=== PATIENT | female | born 1985 | race Caucasian/White ===

== ENCOUNTER 2018-05-30 18:43 | Inpatient (IN) ==
[2018-05-31] MEDS ORDERED: Bupivacaine/Epinephrine PF Inj 0.5% 30 ML Vial ONE (00:45)
--- NOTE | 2018-05-31 03:14 | P.HPOB ---
History of Present Illness Reason for admission: ectopic Planned procedure: other (exam under anesthesia, right salpingectomy, and any other indicated procedure) Narrative: Hawa Arambula is a 32 year old female transfered from [place] for suspected ectopic . She presented to ED with sudden abdominal pain. She had + bhcg, TVUS no iup, free fluid in cul de sac and dilated tube. She has also had some light vagina bleeding. She is npo since 4pm. Review of Systems All other systems reviewed negative except as stated in HPI Gastrointestinal: Reports abdominal pain Genitourinary: Reports abnormal vaginal bleeding, Reports absent period PMFSH - History History Provided By: Patient - Medical History Medical History: Medical History (Last Reviewed 05/30/18 @ 19:27 by NUSRAT Mena) Asthma Ovarian cyst - Surgical History Surgical History: Surgical History (Last Reviewed 05/30/18 @ 19:27 by NUSRAT Mena) No history of previous surgery - Tobacco History Second Hand Smoke Exposure: Yes Smoking Status: Current every day smoker Tobacco Type: Cigarettes - Alcohol History How Often Do You Have a Drink Containing Alcohol: Monthly or less Medications and Allergies Allergies Allergy/AdvReac Type Severity Reaction Status Date / Time No Known Allergies Allergy Verified 05/30/18 19:14 Home Medications Medication Instructions Recorded Confirmed Type No Known Home Medications 05/30/18 05/30/18 History Physical Exam Vital signs: Temp Pulse Resp BP 97.8 F 78 16 121/80 05/31/18 01:02 05/31/18 01:02 05/31/18 01:02 05/31/18 01:02 - Constitutional no acute distress - Routine Chest/Breast/Axilla Exam Chest wall: Absent: tenderness - Routine Respiratory Exam Absent: accessory muscle use - Routine Abdominal Exam Present: soft. Absent: guarding - Routine Extremities Exam Absent: cyanosis, clubbing, edema Assessment and Plan - Assessment (1) Ruptured right tubal ectopic causing hemoperitoneum Code(s): O00.101 - Right tubal without intrauterine ; K66.1 - Hemoperitoneum Status: Acute - Plan 32 yo9 with a suspected ruptured ectopic, likely right tube. Hemodynamically stable, hgb 12+. She was transfered to main PACU for surgery. She has been consented for an EUA, LSC, possible right salpingectomy and any other indicated procedures. She has also consented for blood if medically necessary. Post op care reviewed.
[2018-05-31] MEDS ORDERED: Chlorhexidine Gluconate 2% 1 Pack (2 Cloths) TOPICAL ONE (03:15)
--- NOTE | 2018-05-31 03:16 | P.BOP ---
- Preoperative Diagnosis (1) Ruptured right tubal ectopic causing hemoperitoneum - Postoperative Diagnosis (1) Ruptured right tubal ectopic causing hemoperitoneum Date of procedure: 05/31/18 Procedure: exam under anesthesia, laparoscopic right salpingectomy Anesthesia: GETA Surgeon: Lanette Coker MD [employer]: staff Estimated blood loss (mL): 300 IV fluids (mL): 1,000 Urine output (mL): 150 Pathology: other (right tubal ectopic) Condition: stable Disposition: PACU Subjective Subjective Remarks/Hospital Course: Counts: Correct x 3 Specimens: right tubal ectopic Dispo: to pacu, then home Indication: Ruptured right tubal Intraoperative findings: 200ml of hemoperitoneum, enlarged right fallopian tube , normal left tube, normal ovaries. Appendix not visualized, normal liver edge. Procedure in detail: After review of informed consent, the patient was take to the OR where GETA was administered without complications. She had preop abx and scds to ble. She was placed in modified dorsal lithotomy position with brandon stirups. The abdomen and perineum were prepped and drapped in normal sterile fashion. An exam under anesthesia was performed. Uters enlarged to approx. 9cm, midline, min blood in vault. Shaffer placed in sterile condition to dependant gravity. A bivalve speculum was placed in the vagina. An acorn uterine manipulator was used. Speculum was removed. Gloves changed and attention was then turned to the abdomen. Marcaine with epi was injected in the umbilical fold, a 5mm skin incision was made with the scalpel. A direct visual entry was made while tenting the abdomen. The abdomen was insufflated once abdominal entry was established. A 12 mm trocar site was established in the llq, 2 cm medial and superior to the ASIS under direct visualization. A 5 mm RLQ trocar site was established in a similar fashion. An abdominal survey was performed. The left tube was noted to have normal fimbria, right tube grossly dilated with tubal ectopic. The tube was grasped from the fimbriated end, the Harmonic was used to remove the tube by following the mesosalpinx to the corneal area. Good hemostasis was noted. A lsc pouch was placed in the abdomen and the specimen was retrieved. The 12 mm fascia was closed with #0 vicryl with a kandice Love device and an interrupted 0 vicryl stitch. The pelvis was irrigated and suctioned. Good hemostasis noted. All instruments were removed, the abdomen was desufflated. The pt was given 5 valsalva breaths. The trocars were removed. The 12 mm port site had a bleeding vessel in the subcutaneous tissue that was made hemostatic with a figure of eight. The skin was closed with 4-0 monocryl. Steristrips were placed. The acorn manipulator was removed. The cervix was hemostatic. The shaffer was removed, noted to have clear urine. She was placed in dorsal supine position and anesthesia was reversed with complications.
[2018-05-31] MEDS ORDERED: fentaNYL Citrate Inj 100 MCG/2 ML Ampul ONE (03:33)
[2018-05-31 05:12] VITALS: BP 115/74; PULSE 71; RESP 16; TEMP 97.7; O2SAT 100
== END 2018-05-31 04:55 | disposition home or self-care (01) ==
LOC: NEDDLT 18:43 → HPAC 05-31 01:19
PROVIDERS: ADMIT Obstetrics & Gynecology; ATTEND Obstetrics & Gynecology